=== PATIENT | male | born 1950 | race Caucasian/White ===

== ENCOUNTER 2019-08-26 09:45 | Inpatient (IN) | payer OTHER ==
[2019-08-26 10:13] VITALS: BMI 29.1
--- NOTE | 2019-08-26 11:07 | PN ---
[facility] CIWA - CIWA Score Nausea/Vomitin
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
[2019-08-26] MEDS ORDERED: IBUPROFEN 400 MG TABLET (FP) PO PRN (11:37)
[2019-08-26] MEDS ORDERED: chlordiazePOXIDE HCL 25 MG CAPSULE PO PRN (11:37)
[2019-08-26] MEDS ORDERED: ACETAMINOPHEN 325 MG TABLET (FP) PO PRN (11:37)
[2019-08-26] MEDS ORDERED: MAGNESIUM HYDROX 2400MG/30ML ORAL SUSPENSION 30 ML CUP PO PRN (11:37)
[2019-08-26] MEDS ORDERED: MAGNESIUM CITRATE 300 ML BOTTLE PO PRN (11:37)
[2019-08-26] MEDS ORDERED: MAG HYDROX/AL HYDROX/SIMETH 30 ML UNIT-DOSE CUP PO PRN (11:37)
[2019-08-26] MEDS ORDERED: BISMUTH SUBSALICYLATE 524 MG/30 ML UD PO PRN (11:37)
[2019-08-26] MEDS ORDERED: MENTHOL/PHENOL 1 EACH UD MM PRN (11:37)
[2019-08-26] MEDS: hydrOXYzine PAMOATE 25 MG CAPSULE (FP) PO PRN (12:43)
[2019-08-26] MEDS: chlordiazePOXIDE HCL 25 MG CAPSULE PO SCH ×2 (17:50→23:25)
[2019-08-26] MEDS: METHOCARBAMOL 500 MG TABLET PO PRN (17:53)
[2019-08-26] MEDS: MELATONIN 5 MG TABLETS PO PRN (23:25)
[2019-08-26] MEDS: THIAMINE HCL 100 MG TABLET (FP) PO SCH (23:25)
[2019-08-27] MEDS: chlordiazePOXIDE HCL 25 MG CAPSULE PO SCH ×4 (05:17→22:14)
[2019-08-27 10:01] LABS: HEMATOCRIT 39.8 % (35.4-49); HEMOGLOBIN 13.1 GM/dL (11.7-16.9); MCH 32.1 pg (25.7-33.7); MEAN CELL VOLUME 97.4 fl (80-96); MEAN PLT VOLUME 9.3 fl (7.5-11.1); PLATELET COUNT 195 K/MM3 (134-434); RBC 4.08 M/mm3 (4.00-5.60); WHITE BLOOD COUNT 4.3 K/mm3 (4.0-10.0)
[2019-08-27 10:03] LABS: ALBUMIN 3.1 g/dl (3.4-5.0); BILIRUBIN,TOTAL 0.4 mg/dL (0.2-1); CALCIUM 8.7 mg/dL (8.5-10.1); CREATININE 0.9 mg/dL (0.55-1.3); POTASSIUM 3.7 mmol/L (3.5-5.1); TOT PROT 6.2 g/dl (6.4-8.2)
[2019-08-27] MEDS: PRENATAL VITAMINS W/ FOLIC ACID TABLET (FP) PO SCH (10:06)
[2019-08-27] MEDS: TAMSULOSIN HCL 0.4 MG CAP PO SCH (10:06)
[2019-08-27] MEDS: METHOCARBAMOL 500 MG TABLET PO PRN (10:08)
--- NOTE | 2019-08-27 10:22 | PN ---
[facility] CIWA - CIWA Score Nausea/Vomitin-Mild Nausea/No Vomiting Muscle Tremors: 4-Moderate,w/Arms Extend Anxiety: 3 Agitation: 3 Paroxysmal Sweats: 2 Orientation: 0-Oriented Tacttile Disturbances: 0-None Auditory Disturbances: 0-None Visual Disturbances: 0-None Headache: 0-None Present CIWA-Ar Total Score: 13 S Progress Note (SOAP) Subjective: 68 years old male admitted on 08/26/19 for alcohol withdrawal sx management treated with librium detox regimen patient tolerated well ate breakfast no trouble chewing and swallowing food ambulating on hallway limited conversation with staff Objective: 08/27/19 10:21 Vital Signs Temperature 97.9 F 08/27/19 09:14 Pulse Rate 79 08/27/19 09:14 Respiratory Rate 18 08/27/19 09:14 Blood Pressure 100/69 08/27/19 09:14 O2 Sat by Pulse Oximetry (%) Laboratory Last Values WBC 4.3 K/mm3 (4.0-10.0) 08/27/19 08:20 RBC 4.08 M/mm3 (4.00-5.60) 08/27/19 08:20 Hgb 13.1 GM/dL (11.7-16.9) 08/27/19 08:20 Hct 39.8 % (35.4-49) 08/27/19 08:20 MCV 97.4 fl (80-96) H 08/27/19 08:20 MCH 32.1 pg (25.7-33.7) 08/27/19 08:20 MCHC 33.0 g/dl (32.0-35.9) 08/27/19 08:20 RDW 18.0 % (11.9-15.9) H 08/27/19 08:20 Plt Count 195 K/MM3 (134-434) D 08/27/19 08:20 MPV 9.3 fl (7.5-11.1) 08/27/19 08:20 Sodium 140 mmol/L (136-145) 08/27/19 08:20 Potassium 3.7 mmol/L (3.5-5.1) 08/27/19 08:20 Chloride 105 mmol/L (98-107) 08/27/19 08:20 Carbon Dioxide 29 mmol/L (21-32) 08/27/19 08:20 Anion Gap 6 MMOL/L (8-16) L 08/27/19 08:20 BUN 16.0 mg/dL (7-18) 08/27/19 08:20 Creatinine 0.9 mg/dL (0.55-1.3) 08/27/19 08:20 Est GFR (CKD-EPI)AfAm 102.07 08/27/19 08:20 Est GFR (CKD-EPI)NonAf 88.07 08/27/19 08:20 Random Glucose 104 mg/dL (74-106) 08/27/19 08:20 Calcium 8.7 mg/dL (8.5-10.1) 08/27/19 08:20 Total Bilirubin 0.4 mg/dL (0.2-1) 08/27/19 08:20 AST 18 U/L (15-37) 08/27/19 08:20 ALT 19 U/L (13-61) 08/27/19 08:20 Alkaline Phosphatase 82 U/L (45-117) 08/27/19 08:20 Total Protein 6.2 g/dl (6.4-8.2) L 08/27/19 08:20 Albumin 3.1 g/dl (3.4-5.0) L 08/27/19 08:20 lab noted Assessment: 08/27/19 10:21 alcohol withdrawal sx Plan: continue librium detox regimen
[2019-08-27] MEDS: THIAMINE HCL 100 MG TABLET (FP) PO SCH (22:14)
[2019-08-27] MEDS: ACETAMINOPHEN 325 MG TABLET (FP) PO PRN (22:14)
[2019-08-28] MEDS: chlordiazePOXIDE HCL 25 MG CAPSULE PO SCH ×4 (05:20→22:17)
[2019-08-28] MEDS: PRENATAL VITAMINS W/ FOLIC ACID TABLET (FP) PO SCH (10:08)
[2019-08-28] MEDS: TAMSULOSIN HCL 0.4 MG CAP PO SCH (10:08)
[2019-08-28] MEDS: METHOCARBAMOL 500 MG TABLET PO PRN ×2 (10:10→22:17)
--- NOTE | 2019-08-28 11:15 | PN ---
[facility] CIWA - CIWA Score Nausea/Vomitin-Mild Nausea/No Vomiting Muscle Tremors: 3 Anxiety: 2 Agitation: 2 Paroxysmal Sweats: 2 Orientation: 1-Uncertain about Date Tacttile Disturbances: 1-Very Mild Itch/Numbness Auditory Disturbances: 0-None Visual Disturbances: 0-None Headache: 0-None Present CIWA-Ar Total Score: 12 S Progress Note (SOAP) Subjective: 68 years old male admitted on 08/26/19 for alcohol withdrawal sx management treated with librium detox regimen patient tolerate well ate breakfast ambulating on hallway social with staff Objective: 08/28/19 11:14 Vital Signs Temperature 97.9 F 08/28/19 09:24 Pulse Rate 97 H 08/28/19 09:24 Respiratory Rate 20 08/28/19 09:24 Blood Pressure 124/84 08/28/19 09:24 O2 Sat by Pulse Oximetry (%) Laboratory Last Values WBC 4.3 K/mm3 (4.0-10.0) 08/27/19 08:20 RBC 4.08 M/mm3 (4.00-5.60) 08/27/19 08:20 Hgb 13.1 GM/dL (11.7-16.9) 08/27/19 08:20 Hct 39.8 % (35.4-49) 08/27/19 08:20 MCV 97.4 fl (80-96) H 08/27/19 08:20 MCH 32.1 pg (25.7-33.7) 08/27/19 08:20 MCHC 33.0 g/dl (32.0-35.9) 08/27/19 08:20 RDW 18.0 % (11.9-15.9) H 08/27/19 08:20 Plt Count 195 K/MM3 (134-434) D 08/27/19 08:20 MPV 9.3 fl (7.5-11.1) 08/27/19 08:20 Sodium 140 mmol/L (136-145) 08/27/19 08:20 Potassium 3.7 mmol/L (3.5-5.1) 08/27/19 08:20 Chloride 105 mmol/L (98-107) 08/27/19 08:20 Carbon Dioxide 29 mmol/L (21-32) 08/27/19 08:20 Anion Gap 6 MMOL/L (8-16) L 08/27/19 08:20 BUN 16.0 mg/dL (7-18) 08/27/19 08:20 Creatinine 0.9 mg/dL (0.55-1.3) 08/27/19 08:20 Est GFR (CKD-EPI)AfAm 102.07 08/27/19 08:20 Est GFR (CKD-EPI)NonAf 88.07 08/27/19 08:20 Random Glucose 104 mg/dL (74-106) 08/27/19 08:20 Calcium 8.7 mg/dL (8.5-10.1) 08/27/19 08:20 Total Bilirubin 0.4 mg/dL (0.2-1) 08/27/19 08:20 AST 18 U/L (15-37) 08/27/19 08:20 ALT 19 U/L (13-61) 08/27/19 08:20 Alkaline Phosphatase 82 U/L (45-117) 08/27/19 08:20 Total Protein 6.2 g/dl (6.4-8.2) L 08/27/19 08:20 Albumin 3.1 g/dl (3.4-5.0) L 08/27/19 08:20 RPR Titer Nonreactive (NONREACTIVE) 08/27/19 08:20 lab noted Assessment: 08/28/19 11:14 alcohol withdrawal sx Plan: continue librium detox regimen
[2019-08-28] MEDS: ACETAMINOPHEN 325 MG TABLET (FP) PO PRN (18:04)
[2019-08-28 18:22] LABS: URINE APPEARANCE CLEAR; URINE BILIRUBIN NEGATIVE (NEGATIVE); URINE COLOR YELLOW; URINE GLUCOSE (UA) NEGATIVE (NEGATIVE); URINE KETONE NEGATIVE (NEGATIVE); URINE LEUK ESTERASE NEGATIVE (NEGATIVE); URINE NITRITE NEGATIVE (NEGATIVE); URINE PROTEIN NEGATIVE (NEGATIVE); URINE UROBILINOGEN 0.2 mg/dL (0.2-1.0)
[2019-08-28] MEDS: THIAMINE HCL 100 MG TABLET (FP) PO SCH (22:17)
[2019-08-29] MEDS ORDERED: chlordiazePOXIDE HCL 10 MG CAPSULE PO PRN
[2019-08-29] MEDS: chlordiazePOXIDE HCL 10 MG CAPSULE PO SCH ×4 (05:26→21:59)
[2019-08-29] MEDS: TAMSULOSIN HCL 0.4 MG CAP PO SCH (10:15)
[2019-08-29] MEDS: PRENATAL VITAMINS W/ FOLIC ACID TABLET (FP) PO SCH (10:15)
--- NOTE | 2019-08-29 11:01 | PN ---
[facility] CIWA - CIWA Score Nausea/Vomitin-No Nausea/No Vomiting Muscle Tremors: 3 Anxiety: 3 Agitation: 2 Paroxysmal Sweats: 1-Minimal Palms Moist Orientation: 0-Oriented Tacttile Disturbances: 0-None Auditory Disturbances: 0-None Visual Disturbances: 0-None Headache: 0-None Present CIWA-Ar Total Score: 9 S Progress Note (SOAP) Subjective: 68 years old male admitted on 08/26/19 for alcohol withdrawal sx management treated with librium detox regimen ambulating on hallway social with peers in day room Objective: 08/29/19 11:00 Vital Signs Temperature 96.3 F L 08/29/19 09:07 Pulse Rate 97 H 08/29/19 09:07 Respiratory Rate 20 08/29/19 09:07 Blood Pressure 124/82 08/29/19 09:07 O2 Sat by Pulse Oximetry (%) Laboratory Last Values WBC 4.3 K/mm3 (4.0-10.0) 08/27/19 08:20 RBC 4.08 M/mm3 (4.00-5.60) 08/27/19 08:20 Hgb 13.1 GM/dL (11.7-16.9) 08/27/19 08:20 Hct 39.8 % (35.4-49) 08/27/19 08:20 MCV 97.4 fl (80-96) H 08/27/19 08:20 MCH 32.1 pg (25.7-33.7) 08/27/19 08:20 MCHC 33.0 g/dl (32.0-35.9) 08/27/19 08:20 RDW 18.0 % (11.9-15.9) H 08/27/19 08:20 Plt Count 195 K/MM3 (134-434) D 08/27/19 08:20 MPV 9.3 fl (7.5-11.1) 08/27/19 08:20 Sodium 140 mmol/L (136-145) 08/27/19 08:20 Potassium 3.7 mmol/L (3.5-5.1) 08/27/19 08:20 Chloride 105 mmol/L (98-107) 08/27/19 08:20 Carbon Dioxide 29 mmol/L (21-32) 08/27/19 08:20 Anion Gap 6 MMOL/L (8-16) L 08/27/19 08:20 BUN 16.0 mg/dL (7-18) 08/27/19 08:20 Creatinine 0.9 mg/dL (0.55-1.3) 08/27/19 08:20 Est GFR (CKD-EPI)AfAm 102.07 08/27/19 08:20 Est GFR (CKD-EPI)NonAf 88.07 08/27/19 08:20 Random Glucose 104 mg/dL (74-106) 08/27/19 08:20 Calcium 8.7 mg/dL (8.5-10.1) 08/27/19 08:20 Total Bilirubin 0.4 mg/dL (0.2-1) 08/27/19 08:20 AST 18 U/L (15-37) 08/27/19 08:20 ALT 19 U/L (13-61) 08/27/19 08:20 Alkaline Phosphatase 82 U/L (45-117) 08/27/19 08:20 Total Protein 6.2 g/dl (6.4-8.2) L 08/27/19 08:20 Albumin 3.1 g/dl (3.4-5.0) L 08/27/19 08:20 Urine Color Yellow 08/28/19 13:30 Urine Appearance Clear 08/28/19 13:30 Urine pH 7.0 (5.0-8.0) 08/28/19 13:30 Ur Specific [place] 1.019 (1.010-1.035) 08/28/19 13:30 Urine Protein Negative (NEGATIVE) 08/28/19 13:30 Urine Glucose (UA) Negative (NEGATIVE) 08/28/19 13:30 Urine Ketones Negative (NEGATIVE) 08/28/19 13:30 Urine Blood Negative (NEGATIVE) 08/28/19 13:30 Urine Nitrite Negative (NEGATIVE) 08/28/19 13:30 Urine Bilirubin Negative (NEGATIVE) 08/28/19 13:30 Urine Urobilinogen 0.2 mg/dL (0.2-1.0) 08/28/19 13:30 Ur Leukocyte Esterase Negative (NEGATIVE) 08/28/19 13:30 RPR Titer Nonreactive (NONREACTIVE) 08/27/19 08:20 lab noted Assessment: 08/29/19 11:00 alcohol withdrawal sx Plan: continue librium detox regimen
[2019-08-29] MEDS: METHOCARBAMOL 500 MG TABLET PO PRN ×2 (17:50→21:59)
[2019-08-29] MEDS: ARTIFICIAL TEARS (POLYVINYL ALCOHOL) OPTH DROPS OU SCH ×2 (17:52→22:00)
[2019-08-29] MEDS: THIAMINE HCL 100 MG TABLET (FP) PO SCH (21:59)
[2019-08-30] MEDS: chlordiazePOXIDE HCL 10 MG CAPSULE PO SCH ×2 (05:23→16:47)
[2019-08-30] MEDS: TAMSULOSIN HCL 0.4 MG CAP PO SCH (09:49)
[2019-08-30] MEDS: PRENATAL VITAMINS W/ FOLIC ACID TABLET (FP) PO SCH (09:49)
[2019-08-30] MEDS: ARTIFICIAL TEARS (POLYVINYL ALCOHOL) OPTH DROPS OU SCH ×4 (09:50→22:09)
--- NOTE | 2019-08-30 11:07 | PN ---
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 Objective: 08/30/19 11:06 Vital Signs Temperature 98.4 F 08/30/19 09:09 Pulse Rate 85 08/30/19 09:09 Respiratory Rate 18 08/30/19 09:09 Blood Pressure 123/79 08/30/19 09:09 O2 Sat by Pulse Oximetry (%) Laboratory Last Values WBC 4.3 K/mm3 (4.0-10.0) 08/27/19 08:20 RBC 4.08 M/mm3 (4.00-5.60) 08/27/19 08:20 Hgb 13.1 GM/dL (11.7-16.9) 08/27/19 08:20 Hct 39.8 % (35.4-49) 08/27/19 08:20 MCV 97.4 fl (80-96) H 08/27/19 08:20 MCH 32.1 pg (25.7-33.7) 08/27/19 08:20 MCHC 33.0 g/dl (32.0-35.9) 08/27/19 08:20 RDW 18.0 % (11.9-15.9) H 08/27/19 08:20 Plt Count 195 K/MM3 (134-434) D 08/27/19 08:20 MPV 9.3 fl (7.5-11.1) 08/27/19 08:20 Sodium 140 mmol/L (136-145) 08/27/19 08:20 Potassium 3.7 mmol/L (3.5-5.1) 08/27/19 08:20 Chloride 105 mmol/L (98-107) 08/27/19 08:20 Carbon Dioxide 29 mmol/L (21-32) 08/27/19 08:20 Anion Gap 6 MMOL/L (8-16) L 08/27/19 08:20 BUN 16.0 mg/dL (7-18) 08/27/19 08:20 Creatinine 0.9 mg/dL (0.55-1.3) 08/27/19 08:20 Est GFR (CKD-EPI)AfAm 102.07 08/27/19 08:20 Est GFR (CKD-EPI)NonAf 88.07 08/27/19 08:20 Random Glucose 104 mg/dL (74-106) 08/27/19 08:20 Calcium 8.7 mg/dL (8.5-10.1) 08/27/19 08:20 Total Bilirubin 0.4 mg/dL (0.2-1) 08/27/19 08:20 AST 18 U/L (15-37) 08/27/19 08:20 ALT 19 U/L (13-61) 08/27/19 08:20 Alkaline Phosphatase 82 U/L (45-117) 08/27/19 08:20 Total Protein 6.2 g/dl (6.4-8.2) L 08/27/19 08:20 Albumin 3.1 g/dl (3.4-5.0) L 08/27/19 08:20 Urine Color Yellow 08/28/19 13:30 Urine Appearance Clear 08/28/19 13:30 Urine pH 7.0 (5.0-8.0) 08/28/19 13:30 Ur Specific [place] 1.019 (1.010-1.035) 08/28/19 13:30 Urine Protein Negative (NEGATIVE) 08/28/19 13:30 Urine Glucose (UA) Negative (NEGATIVE) 08/28/19 13:30 Urine Ketones Negative (NEGATIVE) 08/28/19 13:30 Urine Blood Negative (NEGATIVE) 08/28/19 13:30 Urine Nitrite Negative (NEGATIVE) 08/28/19 13:30 Urine Bilirubin Negative (NEGATIVE) 08/28/19 13:30 Urine Urobilinogen 0.2 mg/dL (0.2-1.0) 08/28/19 13:30 Ur Leukocyte Esterase Negative (NEGATIVE) 08/28/19 13:30 RPR Titer Nonreactive (NONREACTIVE) 08/27/19 08:20 lab noted Assessment: 08/30/19 11:07 alcohol withdrawal sx Plan: continue librium detox regimen
[2019-08-30] MEDS: METHOCARBAMOL 500 MG TABLET PO PRN ×2 (12:47→21:39)
[2019-08-30] MEDS: hydrOXYzine PAMOATE 25 MG CAPSULE (FP) PO PRN (21:38)
[2019-08-30] MEDS: THIAMINE HCL 100 MG TABLET (FP) PO SCH (21:38)
[2019-08-30] MEDS: MELATONIN 5 MG TABLETS PO PRN (21:38)
[2019-08-31] MEDS ORDERED: chlordiazePOXIDE HCL 10 MG CAPSULE PO ONE (05:00)
[2019-08-31 09:16] VITALS: BP 109/74; PULSE 80; TEMP 97
--- NOTE | 2019-08-31 09:23 | DS ---
[facility] Detox Discharge Summary Admission Date: 08/26/19 Discharge Date: 08/31/19 - History Present History: Alcohol Dependence Additional Comments: Patient medically stable, tolerated detox well. Follow up with after care at [facility]. Follow up with primary care provider 1-2 weeks. If worsening symptoms are present seek medical attention. Pertinent Past History: Vital Signs Temperature 97.0 F L 08/31/19 09:16 Pulse Rate 80 08/31/19 09:16 Respiratory Rate 18 08/31/19 09:16 Blood Pressure 109/74 08/31/19 09:16 O2 Sat by Pulse Oximetry (%) Laboratory Last Values WBC 4.3 K/mm3 (4.0-10.0) 08/27/19 08:20 RBC 4.08 M/mm3 (4.00-5.60) 08/27/19 08:20 Hgb 13.1 GM/dL (11.7-16.9) 08/27/19 08:20 Hct 39.8 % (35.4-49) 08/27/19 08:20 MCV 97.4 fl (80-96) H 08/27/19 08:20 MCH 32.1 pg (25.7-33.7) 08/27/19 08:20 MCHC 33.0 g/dl (32.0-35.9) 08/27/19 08:20 RDW 18.0 % (11.9-15.9) H 08/27/19 08:20 Plt Count 195 K/MM3 (134-434) D 08/27/19 08:20 MPV 9.3 fl (7.5-11.1) 08/27/19 08:20 Sodium 140 mmol/L (136-145) 08/27/19 08:20 Potassium 3.7 mmol/L (3.5-5.1) 08/27/19 08:20 Chloride 105 mmol/L (98-107) 08/27/19 08:20 Carbon Dioxide 29 mmol/L (21-32) 08/27/19 08:20 Anion Gap 6 MMOL/L (8-16) L 08/27/19 08:20 BUN 16.0 mg/dL (7-18) 08/27/19 08:20 Creatinine 0.9 mg/dL (0.55-1.3) 08/27/19 08:20 Est GFR (CKD-EPI)AfAm 102.07 08/27/19 08:20 Est GFR (CKD-EPI)NonAf 88.07 08/27/19 08:20 Random Glucose 104 mg/dL (74-106) 08/27/19 08:20 Calcium 8.7 mg/dL (8.5-10.1) 08/27/19 08:20 Total Bilirubin 0.4 mg/dL (0.2-1) 08/27/19 08:20 AST 18 U/L (15-37) 08/27/19 08:20 ALT 19 U/L (13-61) 08/27/19 08:20 Alkaline Phosphatase 82 U/L (45-117) 08/27/19 08:20 Total Protein 6.2 g/dl (6.4-8.2) L 08/27/19 08:20 Albumin 3.1 g/dl (3.4-5.0) L 08/27/19 08:20 Urine Color Yellow 08/28/19 13:30 Urine Appearance Clear 08/28/19 13:30 Urine pH 7.0 (5.0-8.0) 08/28/19 13:30 Ur Specific [place] 1.019 (1.010-1.035) 08/28/19 13:30 Urine Protein Negative (NEGATIVE) 08/28/19 13:30 Urine Glucose (UA) Negative (NEGATIVE) 08/28/19 13:30 Urine Ketones Negative (NEGATIVE) 08/28/19 13:30 Urine Blood Negative (NEGATIVE) 08/28/19 13:30 Urine Nitrite Negative (NEGATIVE) 08/28/19 13:30 Urine Bilirubin Negative (NEGATIVE) 08/28/19 13:30 Urine Urobilinogen 0.2 mg/dL (0.2-1.0) 08/28/19 13:30 Ur Leukocyte Esterase Negative (NEGATIVE) 08/28/19 13:30 RPR Titer Nonreactive (NONREACTIVE) 08/27/19 08:20 Patient Aox3 no acute distress EENT WNL No adventitious breath sounds full ROM no gait disturbance, ambulates without ambulatory aids no skin edema or erythema - Physical Exam Results Vital Signs: Vital Signs Temperature 97.0 F L 08/31/19 09:16 Pulse Rate 80 08/31/19 09:16 Respiratory Rate 18 08/31/19 09:16 Blood Pressure 109/74 08/31/19 09:16 O2 Sat by Pulse Oximetry (%) - Treatment Hospital Course: Detox Protocol Followed, Detoxed Safely, Responded well, Discharged Condition Good, Rehab Referral Accepted Patient has Accepted a Rehab Referral to: [facility] - Medication Discharge Medications: Ambulatory Orders Tamsulosin HCl [Flomax -] 0.4 mg PO DAILY #30 [id number] 08/29/19 - Diagnosis (1) Alcohol dependence with uncomplicated withdrawal Status: Acute (2) BPH (benign prostatic hyperplasia) Status: Acute (3) Blindness right eye category 4, 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
[2019-08-31] MEDS ORDERED: ARTIFICIAL TEARS (POLYVINYL ALCOHOL) OPTH DROPS OU SCH (10:00)
[2019-08-31] MEDS: METHOCARBAMOL 500 MG TABLET PO PRN (10:01)
[2019-08-31] MEDS: ARTIFICIAL TEARS (POLYVINYL ALCOHOL) OPTH DROPS OU SCH (10:01)
[2019-08-31] MEDS: TAMSULOSIN HCL 0.4 MG CAP PO SCH (10:01)
[2019-08-31] MEDS: PRENATAL VITAMINS W/ FOLIC ACID TABLET (FP) PO SCH (10:01)
== END 2019-08-31 10:14 | disposition home or self-care (01) | DRG 897 ==
LOC: YASAS 09:45 → Y3N 11:56
PROVIDERS: ADMIT Allergy & Immunology; ATTEND Allergy & Immunology
PROC: HZ2ZZZZ Detoxification Services for Substance Abuse Treatment (ICD-10-PCS; principal; 2019-08-26)
DX: F10.230 Alcohol dependence with withdrawal, uncomplicated (principal); F32.9 Major depressive disorder, single episode, unspecified; H54.0 Blindness, both eyes; N40.0 Benign prostatic hyperplasia without lower urinary tract symptoms; R76.11 Nonspecific reaction to tuberculin skin test without active tuberculosis; Z86.69 Personal history of other diseases of the nervous system and sense organs; Z90.49 Acquired absence of other specified parts of digestive tract
CPT/HCPCS: 36415; 71046-TC-FY; 80053; 81003; 85027; 86593

== ENCOUNTER 2022-08-11 09:34 | Inpatient (IN) | payer OTHER ==
[2022-08-11 10:17] VITALS: BMI 28.1
[2022-08-11] MEDS ORDERED: DICYCLOMINE HCL 10 MG CAPSULE PO PRN (11:49)
[2022-08-11] MEDS ORDERED: NICOTINE 10 MG CARTRIDGE (INHALER) IH PRN (11:49)
[2022-08-11] MEDS ORDERED: MAGNESIUM CITRATE 300 ML BOTTLE PO PRN (11:49)
[2022-08-11] MEDS ORDERED: ACETAMINOPHEN 325 MG TABLET (FP) PO PRN ×2 (11:49)
[2022-08-11] MEDS ORDERED: MAG HYDROX/AL HYDROX/SIMETH 30 ML UNIT-DOSE CUP PO PRN (11:49)
[2022-08-11] MEDS ORDERED: BENZOCAINE/MENTHOL (CHLORASEPTIC ) LOZENGE MM PRN (11:49)
[2022-08-11] MEDS ORDERED: IBUPROFEN 600 MG TABLET (FP) PO PRN (11:49)
[2022-08-11] MEDS ORDERED: MAGNESIUM HYDROX 2400MG/30ML ORAL SUSPENSION 30 ML CUP PO PRN (11:49)
[2022-08-11] MEDS ORDERED: IBUPROFEN 400 MG TABLET (FP) PO PRN (11:49)
[2022-08-11] MEDS ORDERED: NALOXONE HCL (KLOXXADO) 8 MG SPRAY NS PRN (11:49)
[2022-08-11] MEDS ORDERED: LOPERAMIDE HCL 2 MG CAPSULE PO PRN (11:49)
[2022-08-11] MEDS ORDERED: ONDANSETRON *ODT* 4 MG TABLET SL PRN (11:49)
[2022-08-11] MEDS ORDERED: BISMUTH SUBSALICYLATE 262 MG/15 ML BTL PO PRN (12:14)
[2022-08-11] MEDS: METHOCARBAMOL 500 MG TABLET PO PRN ×2 (12:31→18:00)
[2022-08-11] MEDS: chlordiazePOXIDE HCL 25 MG CAPSULE PO SCH ×3 (12:31→22:17)
[2022-08-11] MEDS: TAMSULOSIN HCL 0.4 MG CAP PO SCH (12:31)
[2022-08-11] MEDS: PRENATAL VITAMINS W/ FOLIC ACID TABLET (FP) PO SCH (12:33)
[2022-08-11 16:43] LABS: CALCIUM 8.9 mg/dL (8.5-10.1)
[2022-08-11 16:44] LABS: ALBUMIN 3.4 g/dl (3.4-5.0); BLOOD UREA NITROGEN 19.6 mg/dL (7-18)
[2022-08-11 16:47] LABS: CREATININE 0.9 mg/dL (0.55-1.3)
[2022-08-11 16:48] LABS: BILIRUBIN,TOTAL 0.7 mg/dL (0.2-1)
[2022-08-11 16:49] LABS: MEAN PLT VOLUME 8.3 fl (7.5-11.1)
[2022-08-11 16:52] LABS: HEMATOCRIT 41.3 % (35.4-49); HEMOGLOBIN 14.1 GM/dL (11.7-16.9); MCH 30.8 pg (25.7-33.7); MCHC 34.2 g/dl (32.0-35.9); MEAN CELL VOLUME 90.1 fl (80-96); PLATELET COUNT 213 10^3/uL (134-434); RBC 4.58 M/mm3 (4.00-5.60); RDW 13.7 % (11.9-15.9)
[2022-08-11] MEDS: THIAMINE HCL 100 MG TABLET (FP) PO SCH (22:17)
[2022-08-11] MEDS: MELATONIN 5 MG TABLETS PO SCH (22:17)
[2022-08-12] MEDS: chlordiazePOXIDE HCL 10 MG CAPSULE PO SCH ×4 (05:49→22:47)
[2022-08-12] MEDS: TAMSULOSIN HCL 0.4 MG CAP PO SCH (07:59)
[2022-08-12] MEDS: PRENATAL VITAMINS W/ FOLIC ACID TABLET (FP) PO SCH (10:22)
[2022-08-12] MEDS: MELATONIN 5 MG TABLETS PO SCH (22:47)
[2022-08-12] MEDS: THIAMINE HCL 100 MG TABLET (FP) PO SCH (22:47)
[2022-08-13] MEDS: chlordiazePOXIDE HCL 10 MG CAPSULE PO SCH ×2 (06:13→17:49)
[2022-08-13] MEDS: TAMSULOSIN HCL 0.4 MG CAP PO SCH (10:37)
[2022-08-13] MEDS: PRENATAL VITAMINS W/ FOLIC ACID TABLET (FP) PO SCH (10:37)
[2022-08-13] MEDS: METHOCARBAMOL 500 MG TABLET PO PRN ×2 (10:39→22:28)
[2022-08-13 20:54] VITALS: RESP 18
[2022-08-13] MEDS: THIAMINE HCL 100 MG TABLET (FP) PO SCH (22:26)
[2022-08-13] MEDS: MELATONIN 5 MG TABLETS PO SCH (22:26)
[2022-08-14] MEDS ORDERED: chlordiazePOXIDE HCL 10 MG CAPSULE PO ONE (05:00)
[2022-08-14 06:58] VITALS: TEMP 97.7
[2022-08-14] MEDS: TAMSULOSIN HCL 0.4 MG CAP PO SCH (08:23)
[2022-08-14 09:52] VITALS: BP 109/68; PULSE 73
[2022-08-14] MEDS: PRENATAL VITAMINS W/ FOLIC ACID TABLET (FP) PO SCH (11:29)
== END 2022-08-14 13:35 | disposition other institution (70) | DRG 897 ==
LOC: YASAS 09:34 → SUATTDRO 09:34 → Y6N 12:07
PROVIDERS: ADMIT Allergy & Immunology; ATTEND Surgery
PROC: HZ2ZZZZ Detoxification Services for Substance Abuse Treatment (ICD-10-PCS; principal; 2022-08-11)
DX: F10.230 Alcohol dependence with withdrawal, uncomplicated (principal); F17.210 Nicotine dependence, cigarettes, uncomplicated; H54.61 Unqualified visual loss, right eye, normal vision left eye; N40.0 Benign prostatic hyperplasia without lower urinary tract symptoms; R76.11 Nonspecific reaction to tuberculin skin test without active tuberculosis; Z86.69 Personal history of other diseases of the nervous system and sense organs
CPT/HCPCS: 36415; 71046-TC-FY; 80053; 85027; 86593; 86780; C9803-CS; U0003; U0005

== ENCOUNTER 2022-08-14 14:06 | Inpatient (IN) | payer OTHER ==
[2022-08-14] MEDS ORDERED: LOPERAMIDE HCL 2 MG CAPSULE PO PRN (16:16)
[2022-08-14] MEDS ORDERED: MAGNESIUM CITRATE 300 ML BOTTLE PO PRN (16:16)
[2022-08-14] MEDS ORDERED: NICOTINE 10 MG CARTRIDGE (INHALER) IH PRN (16:16)
[2022-08-14] MEDS ORDERED: guaiFENesin 200 MG/10 ML 10 ML UNIT-DOSE CUPS PO PRN (16:16)
[2022-08-14] MEDS ORDERED: ACETAMINOPHEN 325 MG TABLET (FP) PO PRN (16:16)
[2022-08-14] MEDS ORDERED: MAG HYDROX/AL HYDROX/SIMETH 30 ML UNIT-DOSE CUP PO PRN (16:16)
[2022-08-14] MEDS ORDERED: P-EPHED 60MG/TRIPROLIDI 2.5MG TABLET PO PRN (16:16)
[2022-08-14] MEDS ORDERED: BENZOCAINE/MENTHOL (CHLORASEPTIC ) LOZENGE MM PRN (16:16)
[2022-08-14] MEDS ORDERED: MAGNESIUM HYDROX 2400MG/30ML ORAL SUSPENSION 30 ML CUP PO PRN (16:16)
[2022-08-14] MEDS: THIAMINE HCL 100 MG TABLET (FP) PO SCH (21:25)
[2022-08-14] MEDS: MELATONIN 5 MG TABLETS PO SCH (21:25)
[2022-08-14] MEDS: ATORVASTATIN CA 10 MG TABLET (FP) PO SCH (21:26)
[2022-08-14] MEDS: IBUPROFEN 400 MG TABLET (FP) PO PRN (21:27)
[2022-08-14] MEDS: hydrOXYzine PAMOATE 25 MG CAPSULE (FP) PO PRN (21:27)
[2022-08-15] MEDS: PRENATAL VITAMINS W/ FOLIC ACID TABLET (FP) PO SCH (09:23)
[2022-08-15] MEDS: TAMSULOSIN HCL 0.4 MG CAP PO SCH (09:23)
[2022-08-15] MEDS: NICOTINE 7 MG/24 HOURS TOPICAL PATCH TD SCH (09:25)
[2022-08-15] MEDS: FINASTERIDE 5 MG TABLET (FP) PO SCH (09:26)
[2022-08-15] MEDS: ATORVASTATIN CA 10 MG TABLET (FP) PO SCH (21:08)
[2022-08-15] MEDS: THIAMINE HCL 100 MG TABLET (FP) PO SCH (21:08)
[2022-08-15] MEDS: MELATONIN 5 MG TABLETS PO SCH (21:08)
[2022-08-16] MEDS: PRENATAL VITAMINS W/ FOLIC ACID TABLET (FP) PO SCH (10:04)
[2022-08-16] MEDS: TAMSULOSIN HCL 0.4 MG CAP PO SCH (10:04)
[2022-08-16] MEDS: NICOTINE 7 MG/24 HOURS TOPICAL PATCH TD SCH (10:05)
[2022-08-16] MEDS: FINASTERIDE 5 MG TABLET (FP) PO SCH (10:05)
[2022-08-16] MEDS: ARTIFICIAL TEARS (POLYVINYL ALCOHOL) OPTH DROPS OU PRN (16:01)
[2022-08-16] MEDS: THIAMINE HCL 100 MG TABLET (FP) PO SCH (21:11)
[2022-08-16] MEDS: ATORVASTATIN CA 10 MG TABLET (FP) PO SCH (21:11)
[2022-08-16] MEDS: MELATONIN 5 MG TABLETS PO SCH (21:12)
[2022-08-16] MEDS: IBUPROFEN 400 MG TABLET (FP) PO PRN (21:14)
[2022-08-17] MEDS: FINASTERIDE 5 MG TABLET (FP) PO SCH (10:12)
[2022-08-17] MEDS: TAMSULOSIN HCL 0.4 MG CAP PO SCH (10:12)
[2022-08-17] MEDS: PRENATAL VITAMINS W/ FOLIC ACID TABLET (FP) PO SCH (10:12)
[2022-08-17] MEDS: SELENIUM SULFIDE 2.25% 180 ML SHAMPOO TP SCH (10:13)
[2022-08-17] MEDS: HYDROCORTISONE 2.5% TOPICAL CREAM 30 GM TUBE RC SCH (10:15)
[2022-08-17] MEDS: NICOTINE 7 MG/24 HOURS TOPICAL PATCH TD SCH (10:18)
[2022-08-17] MEDS: ARTIFICIAL TEARS (POLYVINYL ALCOHOL) OPTH DROPS OU PRN ×2 (15:03→21:51)
[2022-08-17] MEDS: IBUPROFEN 400 MG TABLET (FP) PO PRN ×2 (15:04→21:49)
[2022-08-17] MEDS: THIAMINE HCL 100 MG TABLET (FP) PO SCH (21:49)
[2022-08-17] MEDS: ATORVASTATIN CA 10 MG TABLET (FP) PO SCH (21:49)
[2022-08-17] MEDS: hydrOXYzine PAMOATE 25 MG CAPSULE (FP) PO PRN (21:49)
[2022-08-17] MEDS: MELATONIN 5 MG TABLETS PO SCH (21:49)
[2022-08-18] MEDS: FINASTERIDE 5 MG TABLET (FP) PO SCH (09:49)
[2022-08-18] MEDS: PRENATAL VITAMINS W/ FOLIC ACID TABLET (FP) PO SCH (09:49)
[2022-08-18] MEDS: TAMSULOSIN HCL 0.4 MG CAP PO SCH (09:49)
[2022-08-18] MEDS: HYDROCORTISONE 2.5% TOPICAL CREAM 30 GM TUBE RC SCH (09:50)
[2022-08-18] MEDS: NICOTINE 7 MG/24 HOURS TOPICAL PATCH TD SCH (09:50)
[2022-08-18] MEDS: SELENIUM SULFIDE 2.25% 180 ML SHAMPOO TP SCH (09:51)
[2022-08-18] MEDS: ARTIFICIAL TEARS (POLYVINYL ALCOHOL) OPTH DROPS OU PRN (13:30)
[2022-08-18] MEDS: THIAMINE HCL 100 MG TABLET (FP) PO SCH (21:12)
[2022-08-18] MEDS: MELATONIN 5 MG TABLETS PO SCH (21:12)
[2022-08-18] MEDS: hydrOXYzine PAMOATE 25 MG CAPSULE (FP) PO PRN (21:13)
[2022-08-18] MEDS: ATORVASTATIN CA 10 MG TABLET (FP) PO SCH (21:13)
[2022-08-19] MEDS: TAMSULOSIN HCL 0.4 MG CAP PO SCH (09:54)
[2022-08-19] MEDS: PRENATAL VITAMINS W/ FOLIC ACID TABLET (FP) PO SCH (09:54)
[2022-08-19] MEDS: HYDROCORTISONE 2.5% TOPICAL CREAM 30 GM TUBE RC SCH (09:54)
[2022-08-19] MEDS: FINASTERIDE 5 MG TABLET (FP) PO SCH (09:54)
[2022-08-19] MEDS: SELENIUM SULFIDE 2.25% 180 ML SHAMPOO TP SCH (09:55)
[2022-08-19] MEDS: NICOTINE 7 MG/24 HOURS TOPICAL PATCH TD SCH (09:55)
[2022-08-19] MEDS: ARTIFICIAL TEARS (POLYVINYL ALCOHOL) OPTH DROPS OU PRN ×2 (11:33→21:06)
[2022-08-19] MEDS: TOLNAFTATE 1% CREAM 15 GM TUBE TP SCH ×2 (13:17→21:07)
[2022-08-19] MEDS: LIDOCAINE 5% TOPICAL PATCH TP SCH (13:17)
[2022-08-19] MEDS: ATORVASTATIN CA 10 MG TABLET (FP) PO SCH (21:05)
[2022-08-19] MEDS: THIAMINE HCL 100 MG TABLET (FP) PO SCH (21:05)
[2022-08-19] MEDS: MELATONIN 5 MG TABLETS PO SCH (21:05)
[2022-08-19] MEDS: LIDOCAINE PATCH REMOVAL MC SCH (21:06)
[2022-08-20] MEDS: NICOTINE 7 MG/24 HOURS TOPICAL PATCH TD SCH (09:51)
[2022-08-20] MEDS: LIDOCAINE 5% TOPICAL PATCH TP SCH (09:51)
[2022-08-20] MEDS: PRENATAL VITAMINS W/ FOLIC ACID TABLET (FP) PO SCH (09:51)
[2022-08-20] MEDS: TOLNAFTATE 1% CREAM 15 GM TUBE TP SCH ×2 (09:52→21:12)
[2022-08-20] MEDS: FINASTERIDE 5 MG TABLET (FP) PO SCH (09:52)
[2022-08-20] MEDS: TAMSULOSIN HCL 0.4 MG CAP PO SCH (09:52)
[2022-08-20] MEDS: ARTIFICIAL TEARS (POLYVINYL ALCOHOL) OPTH DROPS OU PRN (09:53)
[2022-08-20] MEDS: SELENIUM SULFIDE 2.25% 180 ML SHAMPOO TP SCH (09:53)
[2022-08-20] MEDS: HYDROCORTISONE 2.5% TOPICAL CREAM 30 GM TUBE RC SCH (09:54)
[2022-08-20] MEDS: IBUPROFEN 400 MG TABLET (FP) PO PRN (18:54)
[2022-08-20] MEDS: METHOCARBAMOL 500 MG TABLET PO PRN (21:11)
[2022-08-20] MEDS: MELATONIN 5 MG TABLETS PO SCH (21:11)
[2022-08-20] MEDS: THIAMINE HCL 100 MG TABLET (FP) PO SCH (21:11)
[2022-08-20] MEDS: ATORVASTATIN CA 10 MG TABLET (FP) PO SCH (21:11)
[2022-08-20] MEDS: LIDOCAINE PATCH REMOVAL MC SCH (21:12)
[2022-08-21] MEDS: ARTIFICIAL TEARS (POLYVINYL ALCOHOL) OPTH DROPS OU PRN ×2 (09:29→15:44)
[2022-08-21] MEDS: FINASTERIDE 5 MG TABLET (FP) PO SCH (09:30)
[2022-08-21] MEDS: HYDROCORTISONE 2.5% TOPICAL CREAM 30 GM TUBE RC SCH (09:31)
[2022-08-21] MEDS: SELENIUM SULFIDE 2.25% 180 ML SHAMPOO TP SCH (09:32)
[2022-08-21] MEDS: TOLNAFTATE 1% CREAM 15 GM TUBE TP SCH ×2 (09:32→21:51)
[2022-08-21] MEDS: LIDOCAINE 5% TOPICAL PATCH TP SCH (09:33)
[2022-08-21] MEDS: TAMSULOSIN HCL 0.4 MG CAP PO SCH (09:33)
[2022-08-21] MEDS: METHOCARBAMOL 500 MG TABLET PO PRN (09:35)
[2022-08-21] MEDS: IBUPROFEN 400 MG TABLET (FP) PO PRN ×2 (09:35→21:19)
[2022-08-21] MEDS: NICOTINE 7 MG/24 HOURS TOPICAL PATCH TD SCH (09:36)
[2022-08-21] MEDS: PRENATAL VITAMINS W/ FOLIC ACID TABLET (FP) PO SCH (09:36)
[2022-08-21] MEDS: THIAMINE HCL 100 MG TABLET (FP) PO SCH (21:18)
[2022-08-21] MEDS: MELATONIN 5 MG TABLETS PO SCH (21:18)
[2022-08-21] MEDS: LIDOCAINE PATCH REMOVAL MC SCH (21:18)
[2022-08-21] MEDS: ATORVASTATIN CA 10 MG TABLET (FP) PO SCH (21:19)
[2022-08-22] MEDS: PRENATAL VITAMINS W/ FOLIC ACID TABLET (FP) PO SCH (10:17)
[2022-08-22] MEDS: NICOTINE 7 MG/24 HOURS TOPICAL PATCH TD SCH (10:17)
[2022-08-22] MEDS: ARTIFICIAL TEARS (POLYVINYL ALCOHOL) OPTH DROPS OU PRN (10:18)
[2022-08-22] MEDS: SELENIUM SULFIDE 2.25% 180 ML SHAMPOO TP SCH (10:18)
[2022-08-22] MEDS: TAMSULOSIN HCL 0.4 MG CAP PO SCH (10:19)
[2022-08-22] MEDS: FINASTERIDE 5 MG TABLET (FP) PO SCH (10:19)
[2022-08-22] MEDS: HYDROCORTISONE 2.5% TOPICAL CREAM 30 GM TUBE RC SCH (10:20)
[2022-08-22] MEDS: LIDOCAINE 5% TOPICAL PATCH TP SCH (10:20)
[2022-08-22] MEDS: TOLNAFTATE 1% CREAM 15 GM TUBE TP SCH ×2 (10:22→21:09)
[2022-08-22] MEDS: THIAMINE HCL 100 MG TABLET (FP) PO SCH (21:09)
[2022-08-22] MEDS: LIDOCAINE PATCH REMOVAL MC SCH (21:09)
[2022-08-22] MEDS: MELATONIN 5 MG TABLETS PO SCH (21:09)
[2022-08-22] MEDS: ATORVASTATIN CA 10 MG TABLET (FP) PO SCH (21:10)
[2022-08-23] MEDS: PRENATAL VITAMINS W/ FOLIC ACID TABLET (FP) PO SCH (10:42)
[2022-08-23] MEDS: FINASTERIDE 5 MG TABLET (FP) PO SCH (10:42)
[2022-08-23] MEDS: TAMSULOSIN HCL 0.4 MG CAP PO SCH (10:42)
[2022-08-23] MEDS: TOLNAFTATE 1% CREAM 15 GM TUBE TP SCH ×2 (10:43→21:22)
[2022-08-23] MEDS: NICOTINE 7 MG/24 HOURS TOPICAL PATCH TD SCH (10:43)
[2022-08-23] MEDS: SELENIUM SULFIDE 2.25% 180 ML SHAMPOO TP SCH (10:43)
[2022-08-23] MEDS: ARTIFICIAL TEARS (POLYVINYL ALCOHOL) OPTH DROPS OU PRN ×2 (10:43→15:54)
[2022-08-23] MEDS: LIDOCAINE 5% TOPICAL PATCH TP SCH (10:44)
[2022-08-23] MEDS: HYDROCORTISONE 2.5% TOPICAL CREAM 30 GM TUBE RC SCH (10:45)
[2022-08-23] MEDS: METHOCARBAMOL 500 MG TABLET PO PRN (21:21)
[2022-08-23] MEDS: ATORVASTATIN CA 10 MG TABLET (FP) PO SCH (21:21)
[2022-08-23] MEDS: MELATONIN 5 MG TABLETS PO SCH (21:21)
[2022-08-23] MEDS: THIAMINE HCL 100 MG TABLET (FP) PO SCH (21:21)
[2022-08-23] MEDS: LIDOCAINE PATCH REMOVAL MC SCH (21:22)
[2022-08-24 07:41] VITALS: RESP 18
[2022-08-24] MEDS: PRENATAL VITAMINS W/ FOLIC ACID TABLET (FP) PO SCH (10:05)
[2022-08-24] MEDS: HYDROCORTISONE 2.5% TOPICAL CREAM 30 GM TUBE RC SCH (10:05)
[2022-08-24] MEDS: ARTIFICIAL TEARS (POLYVINYL ALCOHOL) OPTH DROPS OU PRN ×2 (10:05→15:40)
[2022-08-24] MEDS: LIDOCAINE 5% TOPICAL PATCH TP SCH (10:06)
[2022-08-24] MEDS: TAMSULOSIN HCL 0.4 MG CAP PO SCH (10:06)
[2022-08-24] MEDS: TOLNAFTATE 1% CREAM 15 GM TUBE TP SCH ×2 (10:07→21:36)
[2022-08-24] MEDS: FINASTERIDE 5 MG TABLET (FP) PO SCH (10:07)
[2022-08-24] MEDS: NICOTINE 7 MG/24 HOURS TOPICAL PATCH TD SCH (10:07)
[2022-08-24] MEDS: METHOCARBAMOL 500 MG TABLET PO PRN (21:35)
[2022-08-24] MEDS: MELATONIN 5 MG TABLETS PO SCH (21:35)
[2022-08-24] MEDS: ATORVASTATIN CA 10 MG TABLET (FP) PO SCH (21:35)
[2022-08-24] MEDS: THIAMINE HCL 100 MG TABLET (FP) PO SCH (21:35)
[2022-08-24] MEDS: LIDOCAINE PATCH REMOVAL MC SCH (21:36)
[2022-08-25] MEDS: FINASTERIDE 5 MG TABLET (FP) PO SCH (10:18)
[2022-08-25] MEDS: TAMSULOSIN HCL 0.4 MG CAP PO SCH (10:18)
[2022-08-25] MEDS: PRENATAL VITAMINS W/ FOLIC ACID TABLET (FP) PO SCH (10:18)
[2022-08-25] MEDS: NICOTINE 7 MG/24 HOURS TOPICAL PATCH TD SCH (10:19)
[2022-08-25] MEDS: LIDOCAINE 5% TOPICAL PATCH TP SCH (10:19)
[2022-08-25] MEDS: HYDROCORTISONE 2.5% TOPICAL CREAM 30 GM TUBE RC SCH (10:20)
[2022-08-25] MEDS: TOLNAFTATE 1% CREAM 15 GM TUBE TP SCH ×2 (10:20→21:36)
[2022-08-25] MEDS: ARTIFICIAL TEARS (POLYVINYL ALCOHOL) OPTH DROPS OU PRN (10:20)
[2022-08-25] MEDS: METHOCARBAMOL 500 MG TABLET PO PRN ×2 (10:22→21:35)
[2022-08-25] MEDS ORDERED: SELENIUM SULFIDE 2.25% 180 ML SHAMPOO TP SCH (14:45)
[2022-08-25] MEDS: MELATONIN 5 MG TABLETS PO SCH (21:35)
[2022-08-25] MEDS: THIAMINE HCL 100 MG TABLET (FP) PO SCH (21:35)
[2022-08-25] MEDS: ATORVASTATIN CA 10 MG TABLET (FP) PO SCH (21:35)
[2022-08-25] MEDS: SELENIUM SULFIDE 2.25% 180 ML SHAMPOO TP PRN (21:37)
[2022-08-25] MEDS: LIDOCAINE PATCH REMOVAL MC SCH (21:37)
[2022-08-26] MEDS: NICOTINE 7 MG/24 HOURS TOPICAL PATCH TD SCH (10:12)
[2022-08-26] MEDS: PRENATAL VITAMINS W/ FOLIC ACID TABLET (FP) PO SCH (10:12)
[2022-08-26] MEDS: SELENIUM SULFIDE 2.25% 180 ML SHAMPOO TP PRN (10:13)
[2022-08-26] MEDS: HYDROCORTISONE 2.5% TOPICAL CREAM 30 GM TUBE RC SCH (10:13)
[2022-08-26] MEDS: TOLNAFTATE 1% CREAM 15 GM TUBE TP SCH ×2 (10:14→21:09)
[2022-08-26] MEDS: FINASTERIDE 5 MG TABLET (FP) PO SCH (10:15)
[2022-08-26] MEDS: LIDOCAINE 5% TOPICAL PATCH TP SCH (10:15)
[2022-08-26] MEDS: TAMSULOSIN HCL 0.4 MG CAP PO SCH (10:15)
[2022-08-26] MEDS: METHOCARBAMOL 500 MG TABLET PO PRN ×2 (10:16→21:07)
[2022-08-26] MEDS: MELATONIN 5 MG TABLETS PO SCH (21:07)
[2022-08-26] MEDS: THIAMINE HCL 100 MG TABLET (FP) PO SCH (21:07)
[2022-08-26] MEDS: ATORVASTATIN CA 10 MG TABLET (FP) PO SCH (21:07)
[2022-08-26] MEDS: LIDOCAINE PATCH REMOVAL MC SCH (21:08)
[2022-08-27 07:00] VITALS: BP 126/80; PULSE 65; TEMP 97.8
[2022-08-27] MEDS: FINASTERIDE 5 MG TABLET (FP) PO SCH (09:44)
[2022-08-27] MEDS: PRENATAL VITAMINS W/ FOLIC ACID TABLET (FP) PO SCH (09:44)
[2022-08-27] MEDS: TAMSULOSIN HCL 0.4 MG CAP PO SCH (09:44)
[2022-08-27] MEDS: NICOTINE 7 MG/24 HOURS TOPICAL PATCH TD SCH (09:45)
[2022-08-27] MEDS: HYDROCORTISONE 2.5% TOPICAL CREAM 30 GM TUBE RC SCH (09:45)
[2022-08-27] MEDS: LIDOCAINE 5% TOPICAL PATCH TP SCH (09:46)
[2022-08-27] MEDS: TOLNAFTATE 1% CREAM 15 GM TUBE TP SCH (09:47)
== END 2022-08-27 09:54 | disposition home or self-care (01) | DRG 895 ==
LOC: YASAS 14:06 → Y3W 14:09
PROVIDERS: ADMIT Allergy & Immunology; ATTEND Psychiatry & Neurology Pain Medicine
PROC: HZ42ZZZ Group Counseling for Substance Abuse Treatment, Cognitive-Behavioral (ICD-10-PCS; principal; 2022-08-14)
DX: F10.20 Alcohol dependence, uncomplicated (principal); F13.10 Sedative, hypnotic or anxiolytic abuse, uncomplicated; F17.210 Nicotine dependence, cigarettes, uncomplicated; F10.282 Alcohol dependence with alcohol-induced sleep disorder; F10.24 Alcohol dependence with alcohol-induced mood disorder; F19.24 Other psychoactive substance dependence with psychoactive substance-induced mood disorder; F34.1 Dysthymic disorder; H54.0 Blindness, both eyes; H18.4 Corneal degeneration; N40.0 Benign prostatic hyperplasia without lower urinary tract symptoms; G47.00 Insomnia, unspecified; B35.3 Tinea pedis; J30.9 Allergic rhinitis, unspecified; L21.0 Seborrhea capitis; M25.561 Pain in right knee; M25.562 Pain in left knee; M54.50 Low back pain, unspecified; G89.29 Other chronic pain; R76.11 Nonspecific reaction to tuberculin skin test without active tuberculosis; Z59.00 Homelessness unspecified
CPT/HCPCS: 82962